=== PATIENT | female | born 1985 | race Two or more races ===

== ENCOUNTER 2021-12-16 09:52 | Emergency (ER) | payer SELFPAY ==
[~2021-12-16] VITALS: Ht 160 cm; Wt 99.8 kg
[2021-12-16 10:37] VITALS: BP 133/92
[2021-12-16] MEDS ORDERED: AMOX-277 PO ×2 (10:56→10:58)
[2021-12-16] MEDS ORDERED: IBUP800T27 PO ×2 (10:56→10:58)
== END 2021-12-16 11:12 | disposition home or self-care (01) ==
LOC: ER 09:52
DX: H66.91 Otitis media, unspecified, right ear (principal)